=== PATIENT | male | born 1975 ===

== ENCOUNTER → 2019-01-10 | Outpatient (CLI) | payer SELFPAY ==
--- NOTE | 2019-01-10 15:08 | Diagnostic Imaging Report ---
INDICATION: Lumps in the abdominal wall. TECHNIQUE: Sonographic interrogation of the areas of lump in the abdominal wall was performed. FINDINGS: There is an ovoid hypoechoic mass in the right lower quadrant measuring 3.1 x 1.3 x 2.8 cm. No internal vascularity is seen. A second lump in the right lower quadrant, inferior to the first nodule, is seen measuring 2.4 x 0.9 x 2.1 cm. No internal vascularity is identified. No other masses are seen. IMPRESSION: There are two ovoid circumscribed masses in the subcutaneous tissues of the right lower quadrant abdominal wall. These have the appearance of lipomas. No other significant abnormality is seen. Dictated by: Dictated on workstation # [id number]
== END ==
LOC: RAD 11:02
PROVIDERS: ATTEND Nurse Practitioner
DX: R19.04 Left lower quadrant abdominal swelling, mass and lump (principal)
CPT/HCPCS: 76999

== ENCOUNTER 2023-01-27 14:37 | Emergency (ER) | payer SELFPAY ==
[~2023-01-27] VITALS: Ht 152.4 cm; Wt 95.2 kg
[2023-01-27 14:56] LABS: BASOPHILS # (AUTO) 0.1 10^3/uL (0.0-0.1); BASOPHILS % (AUTO) 1 % (0-10); EOSINOPHILS # (AUTO) 0.2 10^3/uL (0.0-0.3); EOSINOPHILS % (AUTO) 2 % (0-10); HEMATOCRIT 46 % (40-54); HEMOGLOBIN 14.9 g/dL (13.3-17.7); LYMPHOCYTES # (AUTO) 3.2 X 10^3 (1.0-4.0); LYMPHOCYTES % (AUTO) 31 % (12-44); MEAN CORPUSCULAR HEMOGLOBIN 27 pg (25-34); MEAN CORPUSCULAR HGB CONC 32 g/dL (32-36); MEAN CORPUSCULAR VOLUME 82 fL (80-99); MEAN PLATELET VOLUME 10.1 fL (9.0-12.2); MONOCYTES # (AUTO) 0.7 X 10^3 (0.0-1.0); MONOCYTES % (AUTO) 7 % (0-12); NEUTROPHILS # (AUTO) 5.9 X 10^3 (1.8-7.8); NEUTROPHILS % (AUTO) 59 % (42-75); PLATELET COUNT 298 10^3/uL (130-400); WHITE BLOOD COUNT 10.1 10^3/uL (4.3-11.0)
--- NOTE | 2023-01-27 14:56 | ED Cardiac General ---
History of Present Illness General Chief Complaint: Chest Pain Stated Complaint: CHEST PAINS | EKG Nursing Triage Note: PT AMB TO RM 5 WITH CC OF CHEST PRESSURE AND ELEVATED BP FOR SEVERAL DAYS. PT WAS SENT FROM [facility] FOR SYMPTOMS. Source: patient, client success manager Exam Limitations: no limitations History of Present Illness Date Seen by Provider: Jan 27, 2023 Time Seen by Provider: 14:41 Initial Comments 47-year-old male with past medical history of hypertension coming in [facility] from [facility] due to chest pain. He was seen there today for a regu larly scheduled visit for high blood pressure. They refilled his lisinopril which she has not been taking for some time. His blood pressure there was 160/100 with a repeat of 170/100. He states he has had some chest pressure for the past 2 days that is been fairly constant. This happens about once a week he states they did an EKG there and they noted some T wave inversions in leads V3 and V4 but no STEMI. He has not had any medicines as of yet today, but they did refill his lisinopril. He denies any cardiac history, no lower extremity swelling or pain, no prior history of DVT or PE, no hemoptysis, no recent surgery, no significant shortness of breath, fever, cough, abdominal pain, nausea, vomiting, weakness, numbness, or any other concerns. Allergies and Home Medications Allergies Coded Allergies: No Known Drug Allergies (Unverified , 01/27/23) Patient Home Medication List Home Medication List Reviewed: Yes Review of Systems Review of Systems Constitutional: No fever EENTM: No Symptoms Reported Respiratory: No Symptoms Reported Cardiovascular: See HPI Gastrointestinal: No Symptoms Reported Genitourinary: No Symptoms Reported Musculoskeletal: no symptoms reported Skin: no symptoms reported Psychiatric/Neurological: No Symptoms Reported Endocrine: No Symptoms Reported Hematologic/Lymphatic: No Symptoms Reported Past Pcbjluy-Vphrwi-Sfzpfi Hx Patient Social History Tobacco Use?: No Substance use?: No Alcohol Use?: No Past Medical History Surgery/Hospitalization HX: HTN Surgeries: Yes Orthopedic (right thumb) Physical Exam Vital Signs Vital Signs - First Documented 01/27/23 14:44 Temp 36.4 Pulse 73 B/P (MAP) 201/133 (155) Pulse Ox 96 O2 Delivery Room Air Capillary Refill : Height, Weight, BMI Height: '" Weight: lbs. oz. kg; 40.00 BMI Method: General Appearance: No Apparent Distress, WD/WN HEENT: PERRL/EOMI, Normal ENT Inspection, Pharynx Normal Neck: Full Range of Motion, Normal Inspection, Non Tender, Supple Respiratory: Chest Non Tender, Lungs Clear, Normal Breath Sounds, No Accessory Muscle Use, No Respiratory Distress Cardiovascular: Regular Rate, Rhythm, No Edema, Normal Peripheral Pulses Gastrointestinal: Normal Bowel Sounds, Non Tender, Soft; No Distended, No Gua rding Extremity: Normal Capillary Refill, Normal Inspection, Normal Range of Motion, Non Tender, No Calf Tenderness, No Pedal Edema Neurologic/Psychiatric: Alert, Oriented x3, No Motor/Sensory Deficits, Normal Mood/Affect Skin: Normal Color, Warm/Dry Progress/Results/Core Measures Results/Orders Lab Results Laboratory Tests Test 01/27/23 14:45 Range/Units White Blood Count 10.1 4.3-11.0 10^3/uL Red Blood Count 5.62 H 4.30-5.52 10^6/uL Hemoglobin 14.9 13.3-17.7 g/dL Hematocrit 46 40-54 % Mean Corpuscular Volume 82 80-99 fL Mean Corpuscular Hemoglobin 27 25-34 pg Mean Corpuscular Hemoglobin Concent 32 32-36 g/dL Red Cell Distribution Width 13.9 10.0-14.5 % Platelet Count 298 130-400 10^3/uL Mean Platelet Volume 10.1 9.0-12.2 fL Immature Granulocyte % (Auto) 0 % Neutrophils (%) (Auto) 59 42-75 % Lymphocytes (%) (Auto) 31 12-44 % Monocytes (%) (Auto) 7 0-12 % Eosinophils (%) (Auto) 2 0-10 % Basophils (%) (Auto) 1 0-10 % Neutrophils # (Auto) 5.9 1.8-7.8 X 10^3 Lymphocytes # (Auto) 3.2 1.0-4.0 X 10^3 Monocytes # (Auto) 0.7 0.0-1.0 X 10^3 Eosinophils # (Auto) 0.2 0.0-0.3 10^3/uL Basophils # (Auto) 0.1 0.0-0.1 10^3/uL Immature Granulocyte # (Auto) 0.0 0.0-0.1 10^3/uL Prothrombin Time 12.8 12.2-14.7 SEC INR Comment 0.9 0.8-1.4 Activated Partial Thromboplast Time 30 24-35 SEC Sodium Level 140 135-145 MMOL/L Potassium Level 3.6 3.6-5.0 MMOL/L Chloride Level 108 H 98-107 MMOL/L Carbon Dioxide Level 23 21-32 MMOL/L Anion Gap 9 5-14 MMOL/L Blood Urea Nitrogen 10 7-18 MG/DL Creatinine 0.76 0.60-1.30 MG/DL Estimat Glomerular Filtration Rate 112 BUN/Creatinine Ratio 13 Glucose Level 141 H 70-105 MG/DL Calcium Level 9.4 8.5-10.1 MG/DL Corrected Calcium 9.2 8.5-10.1 MG/DL Magnesium Level 2.4 1.6-2.4 MG/DL Total Bilirubin 0.8 0.1-1.0 MG/DL Aspartate Amino Transf (AST/SGOT) 25 5-34 U/L Alanine Aminotransferase (ALT/SGPT) 39 0-55 U/L Alkaline Phosphatase 96 40-136 U/L Troponin I < 0.028 <0.028 NG/ML Total Protein 7.9 6.4-8.2 GM/DL Albumin 4.3 3.2-4.5 GM/DL Lipase 33 8-78 U/L My Orders Orders - BILL FERNANDES MD Ekg Tracing (01/27/23 14:50) Cbc And Automated Diff (01/27/23 14:50) Magnesium (01/27/23 14:50) Chest 1 View, Ap/Pa Only (01/27/23 14:50) Comprehensive Metabolic Panel (01/27/23 14:50) Protime With Inr (01/27/23 14:50) Partial Thromboplastin Time (01/27/23 14:50) O2 (01/27/23 14:50) Monitor-Rhythm Ecg Trace Only (01/27/23 14:50) Ed Iv/Invasive Line Start (01/27/23 14:50) Lipase (01/27/23 14:50) Troponin I Richard (01/27/23 14:50) Lisinopril Tablet (Lisinopril Tablet) (01/27/23 15:00) Aspirin Chewable Tablet (Aspirin Chewabl (01/27/23 15:00) Nitroglycerin Ointment (Nitroglycerin (01/27/23 15:00) Medications Given in ED Current Medications Medications Dose Ordered Sig/Sudeep Route Start Time Stop Time Status Last Admin Dose Admin Aspirin 324 mg ONCE ONCE PO 01/27/23 15:00 01/27/23 15:01 DC 01/27/23 14:57 324 MG Lisinopril 10 mg ONCE ONCE PO 01/27/23 15:00 01/27/23 15:01 DC 01/27/23 14:57 10 MG Nitroglycerin 1 inch ONCE ONCE TOP 01/27/23 15:00 01/27/23 15:01 DC 01/27/23 14:57 1 INCH Vital Signs/I&O 01/27/23 14:44 Temp 36.4 Pulse 73 B/P (MAP) 201/133 (155) Pulse Ox 96 O2 Delivery Room Air Blood Pressure Mean: 155 Progress Progress Note : Progress Note 47-year-old male with above history coming in due to high blood pressure and chest pain. ABCs were intact and vitals were stable on presentation. Physical exam reassuring with no acute abnormalities. An IV was placed and basic labs were obtained including cardiac biomarkers. His EKG was ordered and interpreted by me showing no acute ischemic changes, he does have signs of LVH. He was given lisinopril here as well as Nitropaste to lower his blood pressure. On reassessment, his pain was better. He was also given full dose aspirin. His labs were significant for normal creatinine, normal hemoglobin, negative troponin. Given the constant pain with a negative troponin, ACS very unlikely. He is low risk for PE per [place] criteria and is PERC negative making PE very unlikely. Chest x-ray ordered and interpreted by me showing no pneumothorax, no obvious pneumonia. I believe the patient is stable for discharge with outpatient follow-up. He was sent home with strict return precautions. Initial ECG Impression Date: Jan 27, 2023 Initial ECG Impression Time: 14:51 Initial ECG Rate: 69 Initial ECG Rhythm: Normal Sinus Comment Narrow QRS, normal axis, some T wave inversions in the lateral leads and precordial leads, LVH by aVL criteria, no STEMI Diagnostic Imaging Diagonstic Imaging: Xray (chest) Departure Impression Primary Impression: Chest pain Qualified Codes: R07.82 - Intercostal pain Additional Impression: Hypertension Qualified Codes: I10 - Essential (primary) hypertension Disposition: HOME, SELF-CARE Condition: Stable Departure-Patient Inst. Decision time for Depature: 15:40 Referrals: DAVE ASTORGA APRN (PCP/Family) Primary Care Physician Patient Instructions: High Blood Pressure ED Add. Discharge Instructions: Fortunately your work-up in the ER is normal and it is not showing any signs of a heart attack or anything life-threatening. Your blood pressure is high, however, and you do need to continue to take your blood pressure medicine daily. We gave you 1 of those pills today, so you can start your prescription tomorrow. If you have continued chest pain, we would want you to follow-up with a metal template maker. His name is Dr. Casper, and his number is in this paperwork. Afortunadamente, richmond examen en la gregory de emergencias es normal y no muestra ningn signo de ataque cardaco ni nada que ponga en peligro richmond darius. Sin embargo, [place]mond presin arterial es kandice y debe continuar tomando [place] medicamento para la presin arterial a diario. Le dimos 1 de esas pldoras hoy, para que pueda comenzar [place]mond receta maana. Si tiene dolor continuo en el pecho, nos gustara que hiciera un seguimiento con un cardilogo. [place] nombre es Dr. Casper y [place] nmero aparece en clarissa papeleo. BILL FERNANDES MD Jan 27, 2023 14:56
[2023-01-27] MEDS ORDERED: NITROGLYCERIN 2% OINT 1 GM UNIT DOSE PACKET TOP ONE (15:00)
[2023-01-27] MEDS ORDERED: ASPIRIN 81 MG CHEWABLE TABLET PO ONE (15:00)
[2023-01-27 15:07] LABS: ALBUMIN 4.3 GM/DL (3.2-4.5); CHLORIDE 108 MMOL/L (98-107); POTASSIUM 3.6 MMOL/L (3.6-5.0); SODIUM 140 MMOL/L (135-145)
[2023-01-27 15:08] LABS: CALCIUM 9.4 MG/DL (8.5-10.1)
[2023-01-27 15:09] LABS: GLUCOSE 141 MG/DL (70-105); INR 0.9 (0.8-1.4); PROTHROMBIN TIME PATIENT 12.8 SEC (12.2-14.7); TOTAL PROTEIN 7.9 GM/DL (6.4-8.2)
[2023-01-27 15:10] LABS: CARBON DIOXIDE 23 MMOL/L (21-32)
[2023-01-27 15:11] LABS: BILIRUBIN,TOTAL 0.8 MG/DL (0.1-1.0)
[2023-01-27 15:13] LABS: ALKALINE PHOSPHATASE 96 U/L (40-136); CREATININE SERUM 0.76 MG/DL (0.60-1.30); GFR ESTIMATED 112
[2023-01-27 15:14] LABS: BUN/CREATININE RATIO 13
[2023-01-27 15:16] LABS: ALANINE AMINOTRANSFERASE 39 U/L (0-55); MAGNESIUM 2.4 MG/DL (1.6-2.4)
[2023-01-27 15:17] LABS: LIPASE 33 U/L (8-78)
[2023-01-27 15:33] VITALS: BP 175/116
--- NOTE | 2023-01-27 15:41 | Diagnostic Imaging Report ---
INDICATION: Substernal chest pain with hypertension. Portable chest 3:04 PM Heart size and pulmonary vascularity are normal. Lungs are clear. There are no effusions or pneumothoraces. IMPRESSION: Negative chest Dictated by: Dictated on workstation # [id number]
== END 2023-01-27 15:41 | disposition home or self-care (01) ==
LOC: EDUNIT# 14:37 → ER 14:39
DX: R07.89 Other chest pain (principal); I10 Essential (primary) hypertension; Z79.899 Other long term (current) drug therapy
CPT/HCPCS: 36415; 71045; 80053; 83690; 83735; 84484; 85025; 85610; 85730; 93005; 93041